=== PATIENT | female | born 1990 | race Caucasian/White ===

== ENCOUNTER 2017-09-11 20:25 | Emergency (ER) | payer OTHER ==
[~2017-09-11] VITALS: Ht 162.6 cm; Wt 88.5 kg
[2017-09-11 20:30] VITALS: Ht 162.6 cm; Wt 88.5 kg
[2017-09-11 21:55] VITALS: BP 132/78
== END 2017-09-11 21:55 | disposition home or self-care (01) ==
LOC: ED 20:25
DX: S01.01XA Laceration without foreign body of scalp, initial encounter (principal); W20.8XXA Other cause of strike by thrown, projected or falling object, initial encounter; Y93.89 Activity, other specified; Y92.89 Other specified places as the place of occurrence of the external cause; Y99.8 Other external cause status